=== PATIENT | male | born 1955 ===

== ENCOUNTER 2024-09-29 05:30 | Day surgery (SDC) | payer OTHER ==
[2024-09-22 11:22] VITALS: BP 138/84
[2024-09-22 11:36] LABS: URINE APPEARANCE Clear; URINE BILIRRUBIN Negative (NEGATIVE); URINE BLOOD Negative; URINE COLOR Yellow; URINE GLUCOSE Negative (NEGATIVE); URINE KETONE Negative (NEGATIVE); URINE LEUKOCYTE Negative; URINE NITRATE Negative; URINE PROTEIN Negative (NEGATIVE); URINE UROBILINOGEN 1.0 E.U./dl
[2024-09-22 11:37] LABS: URINE BACTERIA 8.3 uL (0.0-1933); URINE RBC 2.4 uL (0.0-20.8); URINE WBC 2.6 uL (0.0-23.2)
[2024-09-22 11:43] LABS: URINE CAST 0.00 uL (0.0-1.40); URINE EPITHELIAL CELLS 0.7 uL (0.0-38.8)
[2024-09-22 11:48] LABS: BASO % 1.1 % (0.1-1.2); EOS # 0.22 (0.04-0.54); EOS % 2.8 % (0.7-7.0); LYMPH # 1.64 (1.18-3.74); LYMPH % 20.6 % (19.3-53.1); MEAN PLATELET VOLUME 11.20 fl (9.4-12.4); MONO # 0.60 (0.24-0.82); MONO % 7.5 % (4.7-12.5); NEUT # 5.41 (1.56-6.13); NEUT % 67.7 % (34.0-71.1); RED CELL DISTRIBUTION WIDTH 12.3 % (11.6-14.4)
[2024-09-22 12:21] LABS: INR 0.97
[2024-09-22 13:08] LABS: ALT/SGPT 24.0 U/L (12-78); AST/SGOT 13.0 U/L (15-37); BILIRUBIN TOTAL 0.68 mg/dL (0.3-1.2); BUN CREA RATIO 17.0 (7.0-25.0); CREATININE SERUM 0.95 mg/dL (0.70-1.30); GFR 78.84; GLOBULINA 3.6 G/DL (2.4-3.5); GLUCOSE FASTING 87.0 mg/dL (65-100); OSMOLALITY SERUM 284.0 MOSM/KG (275-295)
[~2024-09-29] VITALS: Ht 182.9 cm; Wt 81.6 kg
[~2024-09-29 05:30] MED LIST: ZESTRIL10 M1 PO
[2024-09-29] MEDS ORDERED: CEFAZOLIN SODIUM 1,000 MG VIAL ONE (07:06)
[2024-09-29] MEDS ORDERED: TRAMADOL HCL50 MG PO (07:43)
[2024-09-29] MEDS ORDERED: TYLENOL ARTHRI650 MG PO (07:43)
[2024-09-29] MEDS ORDERED: HORIZANT300 MG PO (07:43)
[2024-09-29] MEDS ORDERED: MIRALAX17 GM PO (07:43)
[2024-09-29] MEDS ORDERED: BUPIVACAINE HCL 30 ML VIAL IJ ONE (08:30)
[2024-09-29] MEDS ORDERED: SUGAMMADEX SODIUM 200 MG/2 ML VIAL IV ONE (08:56)
[2024-09-29] MEDS ORDERED: MORPHINE SULFATE 4 MG/ML VIAL IV ONE ×2 (10:15→11:55)
[2024-09-29 16:21] VITALS: BP 108/70; O2SAT 100
== END 2024-09-29 14:15 | disposition home or self-care (01) ==
LOC: CIR.AMB 05:30
PROVIDERS: ATTEND Surgery
DX: K40.90 Unilateral inguinal hernia, without obstruction or gangrene, not specified as recurrent (principal); K42.0 Umbilical hernia with obstruction, without gangrene; Z88.6 Allergy status to analgesic agent
CPT/HCPCS: 49650; 49592; C1781